=== PATIENT | female | born 2000 | race Caucasian/White ===

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

== ENCOUNTER 2022-03-04 09:57 | Emergency (ER) | payer OTHER ==
[~2022-03-04] VITALS: Ht 152.4 cm; Wt 44.5 kg
[2022-03-04 09:57] VITALS: BP 110/80
[2022-03-04] MEDS ORDERED: ANEC4CRE3 TOP (11:25)
== END 2022-03-04 11:41 | disposition home or self-care (01) ==
LOC: M ED 09:57
DX: S90.31XA Contusion of right foot, initial encounter (principal); W22.8XXA Striking against or struck by other objects, initial encounter; Y92.009 Unspecified place in unspecified non-institutional (private) residence as the place of occurrence of the external cause; J45.909 Unspecified asthma, uncomplicated

== ENCOUNTER 2023-01-30 08:15 | Emergency (ER) | payer OTHER ==
[~2023-01-30] VITALS: Ht 152.4 cm; Wt 42.5 kg
[~2023-01-30 08:15] MED LIST changes: +ANEC4CRE3 TOP
[2023-01-30] MEDS ORDERED: ACETAMINOPHEN 500 MG TAB PO ONE (11:20)
[2023-01-30] MEDS ORDERED: IBUP80TA PO (11:22)
[2023-01-30 11:32] VITALS: BP 114/78; TEMP 97.8; O2SAT 100
== END 2023-01-30 11:33 | disposition home or self-care (01) ==
LOC: M ED 08:15
DX: K08.89 Other specified disorders of teeth and supporting structures (principal); K02.9 Dental caries, unspecified; Z79.1 Long term (current) use of non-steroidal anti-inflammatories (NSAID); Z79.3 Long term (current) use of hormonal contraceptives

== ENCOUNTER → 2024-04-11 | Outpatient (REF) | payer OTHER ==
[~2024-04-11] MED LIST changes: +IBUP80TA PO
[2024-04-11 15:04] LABS: GC DNA AMPLIFICATION NEGATIVE (NEGATIVE)
== END ==
LOC: M SFHCPLAZ 12:55
PROVIDERS: ATTEND Family Medicine
DX: Z11.9 Encounter for screening for infectious and parasitic diseases, unspecified (principal)

== ENCOUNTER → 2025-03-01 | Outpatient (CLI) | payer OTHER ==
[2025-03-01 17:21] LABS: HCG, SERUM QUANTITATIVE < 2.6 MIU/ML (<4.2)
[2025-03-01 17:25] LABS: LUTEINIZING HORMONE 6.7 mIU/ML; PROLACTIN 3.47 NG/ML
== END ==
LOC: M PLALAB 14:22
PROVIDERS: ATTEND Family Medicine
DX: N91.2 Amenorrhea, unspecified (principal)